=== PATIENT | male | born 1980 | race Two or more races ===

== ENCOUNTER 2020-07-22 09:16 | Emergency (ER) | payer BC ==
[~2020-07-22] VITALS: Ht 170.2 cm; Wt 90.1 kg
--- NOTE | 2020-07-22 09:20 | NUR ---
BIBRA 77 C/O L FOOT LAC ABOUT 3 INCH. "I GOT CUT WITH SAW", TO ER BED 9, HOOKED TO MONITOR, CHANGED TO HOSP GOWN, WARM BLANKET PROVIDED, FLUSHED L FOOT WOUND. AWAITING MD BLUE
--- NOTE | 2020-07-22 09:25 | NUR ---
AT BEDSIDE FOR EVAL.
[2020-07-22] MEDS ORDERED: TDAP [DIPH/PERTUSSIS/TET] 0.5 ML VIAL IM ONE ×2 (09:27→09:30)
[2020-07-22] MEDS ORDERED: LIDOCAINE 2%-EPI 1:100,000 30 ML VIAL ONE (09:27)
[2020-07-22] MEDS ORDERED: BACITRACIN ZINC OINT PACKET 1 EA PACKET TP ONE ×2 (09:30→10:06)
[2020-07-22] MEDS ORDERED: LIDOCAINE 1%-EPI 1:200,000 SDV 10 ML VIAL IJ ONE (09:30)
--- NOTE | 2020-07-22 09:34 | NUR ---
[employer]PER[employer] AT BEDSIDE
--- NOTE | 2020-07-22 10:36 | NUR ---
DR MURO AT BEDSIDE FOR SUTURING OF L FOOT LACERATION
[2020-07-22] MEDS ORDERED: BENZOIN COMPOUND TINCT 60 ML BOTTLE ONE (10:45)
[2020-07-22] MEDS ORDERED: IBUP-1955 PO (11:11)
[2020-07-22] MEDS ORDERED: CEPH500T PO (11:11)
--- NOTE | 2020-07-22 11:29 | NUR ---
Patient discharged to home in stable condition. Written and verbal after care instructions given. Patient verbalizes understanding of instruction.
[2020-07-22 11:30] VITALS: BP 152/80
== END 2020-07-22 11:31 | disposition home or self-care (01) ==
LOC: ER 09:22
DX: S91.312A Laceration without foreign body, left foot, initial encounter (principal); W45.8XXA Other foreign body or object entering through skin, initial encounter; Y93.89 Activity, other specified; Y92.89 Other specified places as the place of occurrence of the external cause; Y99.8 Other external cause status
CPT/HCPCS: 12002; 73630; 90471; 90715; 99283; A6403 ×2; J3490 ×2